=== PATIENT | female | born 1980 | race Caucasian/White ===

== ENCOUNTER → 2016-11-27 13:15 | Emergency (ER) | payer MEDICAID ==
[2012-11-15 07:27] VITALS: BMI 37.7
== END | disposition left against medical advice (07) ==
LOC: D.ER 13:15
DX: Z02.9 Encounter for administrative examinations, unspecified (principal)

== ENCOUNTER 2017-07-29 10:06 | Observation (INO) | payer MEDICAID ==
[2012-11-15 07:27] VITALS: BMI 37.7
--- NOTE | ~2017-07-29 | HP ---
PATIENT: ROSELINE JONES MEDICAL RECORD: [id number] ACCOUNT: [id number] LOCATION:[facility] : 78 ADMISSION DATE: 07/29/17 HISTORY AND PHYSICAL EXAMINATION HISTORY OF PRESENT ILLNESS: Ms. Jones is a 36-year-old female that is brought in by EMS after apparent overdose. She is currently stable in the Emergency Room, although she is unable to give much history. She is pretty drowsy. Per EMS report, she took approximately 40 Klonopin this morning after she sent her kids to school. She told EMS personnel, she just wanted to go to sleep and not wake up. She is in the ICU at this time. She was a little hypotensive, but that is now corrected. She has a normal rate. She is pretty drowsy and unable to give much history. There at her bedside is the father of her child and one of her children and he states that he does not know anything about this morning's apparent episode. PAST MEDICAL HISTORY: Not readily available from the patient at this time. She nods her head no to allergies or if she takes any medications. She does not answer many other questions. PAST SURGICAL HISTORY: She does have a history of cholecystectomy and per previous history, she has had a section, left arm surgery, and left elbow surgery. ALLERGIES: None. MEDICATIONS: None. FAMILY HISTORY: Unobtainable. SOCIAL HISTORY: Unobtainable. REVIEW OF SYSTEMS: She does not give much of a history. When I asked if she is having any pain, she shakes her head no. Does not answer other questions. PHYSICAL EXAMINATION: GENERAL: She is drowsy, but in no obvious distress. She has normal respirations. HEENT: Sclerae nonicteric. NECK: Soft and supple. HEART: Regular. LUNGS: With good breath sounds bilaterally. ABDOMEN: Soft. EXTREMITIESL She moves all extremities with stimulation. IMPRESSION: Benzodiazepine overdose. PLAN: IV fluids, supportive care, ICU with monitoring, pysch evadithya. We will anticipate she will need placement. TRANSINT:[id number] Voice Confirmation ID: [id number] DOCUMENT ID: [id number] HISTORY AND PHYSICAL [id number] ROSELINE JONES PAT MARQUEZ DO at 1935 CC: [id number] DICTATION DATE: 07/29/17 1448 INDIAN TRADER: 07/29/17 1525 REG [facility] [address] [facility]901
--- NOTE | ~2017-07-29 | CN ---
PATIENT NAME:ROSELINE JONES MEDICAL RECORD: [id number] : 78 LOCATION:[facility] ADMIT DATE: ACCOUNT: [id number] CONSULTING PHYSICIAN: SHEA RAZA MD REFERRING PHYSICIAN: YVAN CERVANTES MD DATE OF CONSULTATION: 07/30/2017 Psychiatric Consultation IDENTIFYING DATA: The patient is 36 years old and she was brought to the hospital after having taken a large number of clonidine tablets. She says that she did this with the intent to kill herself. She actually said she wanted to go to sleep and never wake up. This was about 24 hours ago and she now says she does not want to kill herself and wants to go home. When asked about stressors that precipitated this, she tells me it is related to the fact that she is overwhelmed by life circumstances and that she is dealing with the murder of a relative. She has a urine drug screen that is positive for benzodiazepine and opiate, marijuana, and methamphetamine. She becomes wildly angry when I asked her about her urine drug screen telling me that she has not used drugs for years and that we made a mistake. She then goes on to say that she has to have narcotics because she has chronic pain in her foot. When asked who prescribes them, she jumps out of bed and start running up and down the [place] screaming in a way that is very bizarre. She clearly is not in touch with reality and is wildly unpredictable. ASSESSMENT: 1. Status post overdose with suicidal intent. 2. Psychosis, probably related to a bipolar disorder or possibly major depression. 3. Probable polysubstance abuse. PLAN: At this time, the patient is behaviorally out of control and not in touch with reality. She made a very serious attempt on her life yesterday. She in my opinion should be confined to a psychiatric hospital once medically stabilized. The Emergency Room personnel called security and the patient was given Haldol and Ativan intramuscularly to calm her. Her long-term prognosis is guarded and will depend upon her receiving adequate medication management and psychiatric followup care in addition to her abstaining from illicit drug use. My opinion is she is not in touch with reality, attempted to kill herself in a very serious way yesterday, and needs inpatient psychiatric care against her will or voluntarily, but she needs inpatient psychiatric management. TRANSINT:[id number] Voice Confirmation ID: [id number] DOCUMENT ID: [id number] SHEA RAZA MD at 0833 CC: [id number] DICTATION DATE: 07/30/17 1407 FULL STACK PYTHON DEVELOPER: 07/30/17 1504 DEP ER 07/29/17 [place] [id number] [place] [id number]
[2017-07-29 10:23] LABS: BASOPHILS 0.3 % (0-2); HEMATOCRIT 39.9 % (36.0-48.0); HEMOGLOBIN 13.4 g/dL (12-16); IMMATURE GRANULOCYTES 0.1 % (0-5); LYMPHOCYTES 24.2 % (15-50); MCH 31.1 pg (26.0-34.0); MCHC 33.6 g/dL (31.0-37.0); MCV 92.6 fL (80.0-100.0); MEAN PLATELET VOLUME 9.8 fL (7.4-10.4); MONOCYTES 7.1 % (2-11); NEUTROPHILS 66.3 % (40-80); PLATELET COUNT 287 10x3/uL (130-400); RBC 4.31 10x6/uL (4.00-5.40); RDW 13.1 % (11.5-14.5); WBC 9.8 10x3/uL (4.8-10.8)
[2017-07-29 10:30] LABS: HCG SERUM NEGATIVE (NEGATIVE)
[2017-07-29 10:36] LABS: ALBUMIN 3.5 g/dL (3.4-5.0); ANION GAP 14.7 mmol/L (8-16); BILIRUBIN - TOTAL 1.81 mg/dL (0.2-1.3); CALCIUM 8.5 mg/dL (8.5-10.1); CARBON DIOXIDE 27.3 mmol/L (21.0-32.0); CREATININE - SERUM 0.9 mg/dL (0.6-1.3); PROTEIN - SERUM 7.3 g/dL (6.4-8.2)
[2017-07-29 10:55] LABS: UDS - AMPHET POSITIVE QUAL (NEGATIVE); UDS - BARB NEGATIVE QUAL (NEGATIVE); UDS - BENZO POSITIVE QUAL (NEGATIVE); UDS - COCAINE NEGATIVE QUAL (NEGATIVE); UDS - OPIATE POSITIVE QUAL (NEGATIVE); UDS - PCP NEGATIVE QUAL (NEGATIVE); UDS - THC POSITIVE QUAL (NEGATIVE)
[2017-07-29 11:28] LABS: APPEARANCE CLEAR (CLEAR); BILIRUBIN NEGATIVE (NEGATIVE); COLOR YELLOW (YELLOW); GLUCOSE NEGATIVE (NEGATIVE); KETONE NEGATIVE (NEGATIVE); NITRITE NEGATIVE (NEGATIVE); PROTEIN TRACE mg/dL (NEGATIVE)
[2017-07-29 11:29] LABS: BACTERIA FEW /hpf (NONE SEEN); EPITHELIAL CELLS 0-5 /hpf (0-5); MUCUS <1+ /lpf (NONE SEEN); RED CELLS - URINE OCC /hpf (0-5); WHITE CELLS - URINE 0-5 /hpf (0-5)
[2017-07-30 00:22] LABS: BASOPHILS 0.4 % (0-2); EOSINOPHILS 2.4 % (0-7); HEMATOCRIT 34.6 % (36.0-48.0); HEMOGLOBIN 11.6 g/dL (12-16); IMMATURE GRANULOCYTES 0.1 % (0-5); LYMPHOCYTES 41.2 % (15-50); MCH 31.3 pg (26.0-34.0); MCHC 33.5 g/dL (31.0-37.0); MCV 93.3 fL (80.0-100.0); MEAN PLATELET VOLUME 9.7 fL (7.4-10.4); MONOCYTES 7.7 % (2-11); NEUTROPHILS 48.2 % (40-80); PLATELET COUNT 242 10x3/uL (130-400); RBC 3.71 10x6/uL (4.00-5.40); RDW 13.5 % (11.5-14.5); WBC 7.4 10x3/uL (4.8-10.8)
[2017-07-30 00:54] LABS: ALBUMIN 2.8 g/dL (3.4-5.0); ALKALINE PHOSPHATASE 33 U/L (46-116); ALT (SGPT) 24 U/L (10-68); CALCIUM 7.8 mg/dL (8.5-10.1); CARBON DIOXIDE 24.5 mmol/L (21.0-32.0); CHLORIDE - SERUM 108 mmol/L (98-107); CREATININE - SERUM 0.7 mg/dL (0.6-1.3); GLUCOSE 101 mg/dL (74-106); POTASSIUM - SERUM 3.9 mmol/L (3.5-5.1); PROTEIN - SERUM 6.1 g/dL (6.4-8.2); SODIUM 142 mmol/L (136-145); THYROID STIMULATING HORMONE 0.45 uIU/mL (0.36-3.74); eGFR NON AFRICAN AMERICAN > 90 mL/min (90-120)
[2017-07-30 00:55] LABS: CALC OSMOLALITY 283 mosm/kg (275-300); UREA NITROGEN 15 mg/dL (7-18)
== END 2017-07-30 18:32 | disposition short-term general hospital (02) ==
LOC: D.ER 10:06 → OBSVTIME 10:57 → D.SDCHOLD 10:57 → D.ER 18:32 → D.SDCHOLD 07-30 18:32
PROVIDERS: Emergency Medicine; Family Medicine
DX: T42.4X2A Poisoning by benzodiazepines, intentional self-harm, initial encounter (principal); Y92.019 Unspecified place in single-family (private) house as the place of occurrence of the external cause; F17.200 Nicotine dependence, unspecified, uncomplicated; I95.9 Hypotension, unspecified; F31.9 Bipolar disorder, unspecified